=== PATIENT | female | born 1955 | race Caucasian/White ===

== ENCOUNTER 2016-10-13 21:55 | Inpatient (IN) | payer OTHER ==
[~2016-10-13] VITALS: Ht 170.2 cm; Wt 98.6 kg
--- NOTE | ~2016-10-13 | EKG ---
PATIENT: EDGAR ARIAS UNIT #: [id number] Ventricular Rate: 90 BPM Atrial Rate: 90 BPM P-R Interval: 164 ms QRS Duration: 84 ms Q-T Interval: 380 ms QTC Calculation(Bezet): 464 ms P Roosevelt: 85 degrees Calculated R Roosevelt: 69 degrees Calculated T Roosevelt: 57 degrees Diagnosis Line: Normal sinus rhythm Diagnosis Line: Normal ECG Diagnosis Line: When compared with ECG of 13-MAY-2011 20:36, Diagnosis Line: No significant change was found Diagnosis Line: Confirmed by SAMARA HOOVER MD ([id number]) on Diagnosis Line: 10/16/2016 8:05:43 PM INTERPRETING MD: BYRON
--- NOTE | ~2016-10-13 | DS ---
Unit #: [id number] #: [id number] Patient: EDGAR ARIAS [id number] [address] [place], [place] [address] [id number] I MR#: [id number] NAME: EDGAR ARIAS. ROOM: 562 Age: 60 Sex: F Admission Date: 10/14/2016 : 1955 Discharge Date: 10/16/2016 Attending Physician: Clarice Manuel M.D. Primary Care Physician: Bright Cool M.D. DISCHARGE SUMMARY DISCHARGE DIAGNOSES 1. Acute on chronic respiratory failure. 2. Hypoxic respiratory failure. 3. Chronic obstructive pulmonary disease exacerbation. 4. Chronic tobacco use. CONSULTANTS None. This is a patient with a long history of COPD. She has not been in the office for multiple years. The patient is having significant COPD exacerbation over the past two to three days. Patient denies any sort of sick contacts. Denies any sort of nausea, vomiting, diarrhea. The patient now presents with worsening shortness of breath, hypoxia, and is admitted to the floor for COPD exacerbation. The patient was placed on vancomycin, Solu-Medrol, Rocephin, Pepcid, and Lovenox. The patient is ambulating around without any sort of difficulty. HOSPITAL COURSE The patient, however, is having some significant dyspnea on exertion. The amount of steroids was decreased by half and then again by half and then patient is going to be sent home on a 7 day taper. The patient is feeling fairly well and denies any sort of symptoms of fevers, chills, discharge medications will be done as per the med rec. Patient evaluated on room air, satting 94% on room air. Satting 90% to 92% with oxygen ambulation, walk approximately 600 feet. MEDICATIONS 1. Albuterol inhaler. 2. Ventolin two puffs 4 times a day and as needed. 3. Albuterol nebulizer q.4 hours as needed. 4. Prednisone tablet 10 mg 80 mg x1 day, 60 mg x1 day, 50 mg x1 day; 40 mg x1 day; 30 mg x1 day; 20 mg x1 day; 10 mg x1 day. 5. Nicotine patch 21 mg every morning x3 weeks. 6. Klonopin 1 mg p.o. b.i.d. anxiety. 7. Metoprolol 12.5 mg p.o. twice daily. 8. Hydrocodone acetaminophen 1 tablet p.o. q.i.d. p.r.n. back pain. 9. Omnicef 300 mg p.o. b.i.d. for 4 days. 10. Mucinex 600 mg p.o. b.i.d. FOLLOWUP Followup with primary care doctor tomorrow. Patient does not require supplemental oxygen at this time. Should probably get rechecked on Unit #: [id number] #: [id number] Patient: EDGAR ARIAS followup. Dictated by... Cristobal Lucero/zoila TD: 10/18/2016 11:48 JOB #: [id number] DISCHARGE SUMMARY Page 1 of 1 X Diego Manuel MD X DISCHARGE SUMMARY
--- NOTE | ~2016-10-13 | CR72 ---
[facility] A Service of [facility] RADIOLOGY TEXT RESULTS PATIENT: EDGAR ARIAS LOCATION: [facility] 562-01 : 57 UNIT #: [id number] AGE: [address]: Diego Manuel MD SEX: F ORDER DR: [id number] [facility] [address] [place], [place] [address] [id number] I MR#: [id number] Acc #: [id number] NAME: EDGAR ARIAS. : 1955 SEX: F STUDY DATE/TIME: 10/14/2016 6:16 UNIT: [facility] ROOM: [facility] STUDY DESCRIPTION: CR Chest Single View Portable Attending Physician: Clarice Manuel M.D. Ordering Physician: Clarice Manuel M.D. Primary Care Physician: Bright Cool M.D. MEDICAL IMAGING REPORT This report is preliminary unless electronic signature is present EXAM Chest x-ray single-view portable HISTORY Short of air and syncope for 3 days. COMMENT Two frontal views of the chest reviewed to include the entirety of the chest. Comparison is from 10/13/2016. There is distortion of pulmonary parenchymal architecture consistent with underlying emphysema best appreciated at apices. Cardiac silhouette size is borderline enlarged. There is no acute-appearing parenchymal infiltrate, acute congestive failure or pneumothorax. No pleural effusion is suspected. IMPRESSION 1. Findings of underlying emphysema. 2. Borderline cardiac silhouette enlargement. Dictated by... Lizzie Jasso M.D. THIS IS AN ELECTRONICALLY VERIFIED REPORT Lizzie Jasso M.D. at 10/14/2016 4:15 PM Sabra TD: 10/14/2016 13:25 JOB #: [id number] MEDICAL IMAGING REPORT Page 1 of 1 COPY
--- NOTE | ~2016-10-13 | CR72 ---
[facility] A Service of [facility] RADIOLOGY TEXT RESULTS PATIENT: EDGAR ARIAS LOCATION: [facility] 562- : 57 UNIT #: [id number] AGE: [address]: Diego Manuel MD SEX: F ORDER DR: [id number] [facility] [address] [place], [place] [address] [id number] I MR#: [id number] Acc #: [id number] NAME: EDGAR ARIAS. : 1955 SEX: F STUDY DATE/TIME: 10/15/2016 04:16 UNIT: [facility] ROOM: [facility] STUDY DESCRIPTION: CR Chest Single View Portable Attending Physician: Clarice Manuel M.D. Ordering Physician: Clarice Manuel M.D. Primary Care Physician: Bright Cool M.D. MEDICAL IMAGING REPORT This report is preliminary unless electronic signature is present EXAM Portable chest 10/15 at 04:16 INDICATIONS Shortness of air, cough. COPD exacerbation. Symptoms started yesterday. FINDINGS AP portable chest is compared with 10/14/2016. Cardiac and mediastinal contours are stable. Lungs are emphysematous but clear, except for granulomatous calcification. No pneumothorax. Dictated by... Yury Martin Jr., M.D. THIS IS AN ELECTRONICALLY VERIFIED REPORT Yury Martin Jr., M.D. at 10/15/2016 9:23 PM ROSCOEK/aguila TD: 10/15/2016 16:01 JOB #: [id number] MEDICAL IMAGING REPORT Page 1 of 1 COPY
--- NOTE | ~2016-10-13 | CR72 ---
[facility] A Service of [facility] RADIOLOGY TEXT RESULTS PATIENT: EDGAR ARIAS LOCATION: [facility] 562- : 57 UNIT #: [id number] AGE: [address]: Diego Manuel MD SEX: F ORDER DR: [id number] [facility] [address] [place], [place] [address] [id number] I MR#: [id number] Acc #: [id number] NAME: EDGAR ARIAS : 1955 SEX: F STUDY DATE/TIME: 10/13/2016 23:17 UNIT: [facility] ROOM: [facility] STUDY DESCRIPTION: CR Chest Single View Portable Attending Physician: Clarice Manuel M.D. Ordering Physician: Bao Connor M.D. Primary Care Physician: Bright Cool M.D. MEDICAL IMAGING REPORT This report is preliminary unless electronic signature is present EXAM Portable chest, 10/13 23:17 hours INDICATIONS Syncopal episode and shortness of air for 2 days. History of smoking. FINDINGS AP portable chest is compared with 04/22/2016. Cardiac and mediastinal contours are normal. The lungs are emphysematous but clear. No pneumothorax. IMPRESSION Emphysema. No active disease. Dictated by... Yury Martin Jr., M.D. THIS IS AN ELECTRONICALLY VERIFIED REPORT Yury Martin Jr., M.D. at 10/14/2016 8:50 PM HOA/amalia TD: 10/14/2016 10:40 JOB #: [id number] MEDICAL IMAGING REPORT Page 1 of 1 COPY
[~2016-10-13 21:55] MED LIST: BREO ELLIPTA 11 EACH INH; COATED ASPIRIN325 M1 PO; HYDROCHLOROTHIA25 MG PO; INCRUSE ELLI62.5 MCG INH; KLONOPIN1 M1 PO; LORTAB 10/500 T1 TAB PO; NORCO 10-325 TA1 TAB PO; PHENERGAN DM1 ML PO; PREDNISONE10 MG PO; PROVENTIL2 MG NEB; SENNA S TABLET1 TAB PO; VITAMIN B12 SL; ZITHROMAX PO
[2016-10-13 23:26] LABS: BASOPHIL% 0.4 % (0-2.5); EOSINOPHIL# 0.2 X10e3 (0-0.7); EOSINOPHIL% 2.2 % (0.0-7.0); HEMATOCRIT 42.5 % (35.0-45.0); HEMOGLOBIN 14.1 gm/dL (12.0-16.0); LYMPHOCYTE# 2.8 X10e3 (1.0-3.5); LYMPHOCYTE% 30.5 % (17.0-45.0); MEAN CELL VOLUME 84.5 FL (83-96); MEAN CORPUSCULAR HEMOGLOBIN 28.1 PG (28-34); MEAN CORPUSCULAR HGB CONC 33.2 g/dL (30-36); MEAN PLATELET VOLUME 7.1 FL (6.5-11.5); MONOCYTE# 0.7 X10e3 (0-1.0); MONOCYTE% 7.4 % (3.0-12.0); NEUTROPHIL# 5.5 X10e3 (1.5-7.1); NEUTROPHIL% 59.5 % (40-75); PLATELET COUNT 240 X10e3 (140-420); RED BLOOD COUNT 5.02 X10e (3.90-5.30); RED CELL DISTRIBUTION WIDTH 14.1 % (11.0-15.5); WHITE BLOOD COUNT 9.3 X10e3 (4.0-10.5)
[2016-10-13 23:27] LABS: DIFF IND NO
[2016-10-13 23:50] LABS: BILIRUBIN, DIRECT 0.1 mg/dL (0.0-0.2); BILIRUBIN,INDIRECT 0.9 mg/dL (0.0-0.9); BUN/CREATININE RATIO 12.22; CALCIUM SERUM 9.2 mg/dL (8.4-10.2); CREATININE SERUM 0.9 mg/dL (0.6-1.4); POTASSIUM 3.4 mmol/L (3.5-5.1); PROTEIN TOTAL SERUM 7.2 g/dL (6.0-8.3)
[2016-10-14] MEDS ORDERED: DELTASONE20 MG PO (02:45)
[2016-10-14] MEDS ORDERED: ALBUTEROL20 ml INH (02:45)
[2016-10-14] MEDS ORDERED: HYDROCODON-ACE1 EAC5 PO (03:42)
[2016-10-14 06:23] LABS: BASOPHIL% 0.4 % (0-2.5); EOSINOPHIL% 0.2 % (0.0-7.0); HEMATOCRIT 44.3 % (35.0-45.0); HEMOGLOBIN 14.5 gm/dL (12.0-16.0); LYMPHOCYTE# 0.7 X10e3 (1.0-3.5); LYMPHOCYTE% 7.8 % (17.0-45.0); MEAN CELL VOLUME 85.1 FL (83-96); MEAN CORPUSCULAR HEMOGLOBIN 27.9 PG (28-34); MEAN CORPUSCULAR HGB CONC 32.8 g/dL (30-36); MEAN PLATELET VOLUME 7.4 FL (6.5-11.5); MONOCYTE# 0.1 X10e3 (0-1.0); NEUTROPHIL# 8.3 X10e3 (1.5-7.1); NEUTROPHIL% 90.6 % (40-75); PLATELET COUNT 244 X10e3 (140-420); RED BLOOD COUNT 5.21 X10e (3.90-5.30); RED CELL DISTRIBUTION WIDTH 13.6 % (11.0-15.5); WHITE BLOOD COUNT 9.2 X10e3 (4.0-10.5)
[2016-10-14 06:27] LABS: DIFF IND NO
[2016-10-14 07:55] LABS: BUN/CREATININE RATIO 14.28; CALCIUM SERUM 9.5 mg/dL (8.4-10.2); CREATININE SERUM 0.7 mg/dL (0.6-1.4); GLOM FILT RATE Estimated 94.8 mL/min (>60); POTASSIUM 3.7 mmol/L (3.5-5.1)
[2016-10-15 05:36] LABS: HEMATOCRIT 44.2 % (35.0-45.0); HEMOGLOBIN 14.7 gm/dL (12.0-16.0); MEAN CELL VOLUME 84.3 FL (83-96); MEAN CORPUSCULAR HGB CONC 33.2 g/dL (30-36); MEAN PLATELET VOLUME 7.8 FL (6.5-11.5); RED BLOOD COUNT 5.24 X10e (3.90-5.30); RED CELL DISTRIBUTION WIDTH 13.7 % (11.0-15.5); WHITE BLOOD COUNT 15.7 X10e3 (4.0-10.5)
[2016-10-15 06:10] LABS: BUN/CREATININE RATIO 17.5; CALCIUM SERUM 9.4 mg/dL (8.4-10.2); CREATININE SERUM 0.8 mg/dL (0.6-1.4); GLOM FILT RATE Estimated 80.8 mL/min (>60); POTASSIUM 3.9 mmol/L (3.5-5.1)
[2016-10-16 03:31] LABS: BUN/CREATININE RATIO 33.33; CALCIUM SERUM 8.8 mg/dL (8.4-10.2); CREATININE SERUM 0.6 mg/dL (0.6-1.4); GLOM FILT RATE Estimated 99.8 mL/min (>60)
[2016-10-16] MEDS ORDERED: NICOTINE TRANSD14 MG TOP (18:54)
[2016-10-16] MEDS ORDERED: LOPRESSOR PO (18:56)
[2016-10-16] MEDS ORDERED: ALBUTEROL MININEB NEB (18:57)
[2016-10-16] MEDS ORDERED: STIOLTO RESPIMAT4 GM (18:57)
[2016-10-16] MEDS ORDERED: ALBUTEROL17 GM INH (18:58)
[2016-10-16] MEDS ORDERED: OMNICEF300 MG PO (18:58)
[2016-12-15] MEDS ORDERED: HYDROCHLOROTH12.5 MG PO (21:55)
[2016-12-15] MEDS ORDERED: IBUPROFEN800 MG PO (21:56)
[2016-12-20] MEDS ORDERED: NICOTINE1 EAC2 TD (18:19)
[2016-12-20] MEDS ORDERED: AZITHROMYCIN500 MG PO (18:21)
[2016-12-20] MEDS ORDERED: HYDRALAZINE HCL25 MG PO (18:22)
== END 2016-10-16 19:30 | disposition home or self-care (01) | DRG 190 ==
LOC: CED 21:55 → CEDOF 10-14 01:29 → C5B 10-14 03:19
PROVIDERS: Emergency Medicine; Internal Medicine Pulmonary Disease
DX: J44.1 Chronic obstructive pulmonary disease with (acute) exacerbation (principal); J96.21 Acute and chronic respiratory failure with hypoxia; I10 Essential (primary) hypertension; F17.200 Nicotine dependence, unspecified, uncomplicated; F41.9 Anxiety disorder, unspecified; M54.9 Dorsalgia, unspecified; Z98.51 Tubal ligation status; Z79.82 Long term (current) use of aspirin
CPT/HCPCS: 36415; 71010; 80048; 80076; 80202; 82308; 85025; 85027; 93005; 94640; 94760; 96374; 99285; J0696; J1650; J2920; J2930; J3370